=== PATIENT | male | born 1970 | race Caucasian/White ===

== ENCOUNTER 2021-10-23 04:38 | Emergency (ER) | payer BC ==
[2021-10-23 04:46] VITALS: BP 140/82; PULSE 69
[2021-10-23] MEDS: Amoxicillin/Clavulanate K 875-125 MG Tab PO STA (05:31)
== END 2021-10-23 06:00 | disposition home or self-care (01) ==
LOC: CC.ED 04:38
DX: K04.7 Periapical abscess without sinus (principal); K02.9 Dental caries, unspecified; K08.89 Other specified disorders of teeth and supporting structures; Z79.899 Other long term (current) drug therapy
CPT/HCPCS: 99282; 99283; A9270-GY